=== PATIENT | female | born 1945 | race Caucasian/White ===

== ENCOUNTER 2020-03-19 07:54 | Outpatient (CLI) | payer MEDICARE, OTHER, SELFPAY ==
--- NOTE | 2020-03-19 09:08 | ECG_ITS ---
Measurements Intervals [place] Rate: 66 P: 54 VT: 182 QRS: -58 QRSD: 90 T: 70 QT: 403 QTc: 422 Interpretive Statements SINUS RHYTHM LEFT ATRIAL ENLARGEMENT LEFT ANTERIOR FASCICULAR BLOCK POSSIBLE LEFT VENTRICULAR HYPERTROPHY BASELINE ARTIFACT- I, II, AVR ABNORMAL ECG Electronically Signed On 03-19-2020 9:30:52 CDT by Agustin Delacruz D.O.
[2020-03-19 09:48] LABS: Basophils Percent Auto 0.6 % (0.2-1.2); Eosinophils Absolute Auto 0.2 K/mm3 (0-0.3); Eosinophils Percent Auto 3.7 % (0-4.4); Hematocrit 44.1 % (37.0-47.0); Hemoglobin 14.9 g/dL (12.0-15.0); Immature Granulocyte Absolute 0.01 K/mm3 (0.00-0.031); Immature Granulocyte Percent A 0.2 % (0-0.5); Lymphocytes Percent Auto 26.5 % (18.3-44.2); Mean Corpuscular HGB Conc 33.8 g/dl (32-36); Mean Corpuscular Hemoglobin 32.5 pg (26-34); Mean Corpuscular Volume 96.1 fl (80-100); Mean Platelet Volume 9.4 fl (7.4-10.4); Monocytes Absolute Auto 0.4 K/mm3 (0.1-0.6); Monocytes Percent Auto 7.6 % (2.6-8.5); Neutrophils Percent Auto 61.4 % (45.5-73.1); Platelet Count Result 285 k/mm3 (150-375); Red Blood Count 4.59 M/mm3 (4.2-5.4); Red Cell Distribution Width 12.8 % (11.5-14.5); White Blood Count 4.9 K/mm3 (4.5-10.0)
[2020-03-19 09:59] LABS: INR 0.9; Prothrombin Time 12.2 Seconds (11.1-14.7)
[2020-03-19 10:00] LABS: Alanine Aminotransferase 16 U/L (4-35); Albumin Level 4.6 g/dL (3.5-5.1); Alkaline Phosphatase 77 U/L (38-126); Anion Gap 7 mmol/L (8-16); Aspartate Amino Transferase 27 U/L (14-36); Bilirubin,Total 0.7 mg/dL (0.2-1.3); Blood Urea Nitrogen 13 mg/dL (7-17); Calcium 9.5 mg/dL (8.4-10.2); Carbon Dioxide 31 mmol/L (22-30); Chloride 96 mmol/L (98-107); Estimated Glomerular Filt Rate > 60; Glucose 95 mg/dL (65-105); Partial Thromboplastin Time 27.3 SECONDS (22.3-36.8); Potassium 4.2 mmol/L (3.4-5.0); Sodium 134 mmol/L (137-145)
== END 2020-03-19 07:55 | disposition home or self-care (01) ==
LOC: ANHSURGERY 08:00
PROVIDERS: PCP Internal Medicine; Visit Provider Urology
DX: Z01.818 Encounter for other preprocedural examination (principal); N81.4 Uterovaginal prolapse, unspecified; R94.31 Abnormal electrocardiogram [ECG] [EKG]
CPT/HCPCS: 36415; 80053; 85025; 85610; 85730; 86850; 86900; 86901; 87086; 87088; 93005

== ENCOUNTER 2020-03-23 00:30 | Outpatient (CLI) | payer MEDICARE, OTHER, SELFPAY ==
[2020-03-23 18:35] LABS: SARS-CoV-2 RNA PCR Negative
== END 2020-03-23 00:31 | disposition home or self-care (01) ==
LOC: ANHCOVIDDT 00:31
PROVIDERS: Visit Provider Urology
DX: Z01.812 Encounter for preprocedural laboratory examination (principal); Z20.828 Contact with and (suspected) exposure to other viral communicable diseases
CPT/HCPCS: 87635; C9803; U0003

== ENCOUNTER 2020-03-26 01:06 | Day surgery (SDC) | payer MEDICARE, OTHER, SELFPAY ==
[2020-03-19 08:11] VITALS: BP 171/89; PULSE 72; RESP 16; TEMP 36.6; O2SAT 98; BMI 22.3
--- NOTE | 2020-03-22 14:44 | P.HP_ITS ---
H&P: HPI History of Present Illness Date/Time: 03/22/20 14:44 Chief complaint: uterine prolapse, Narrative: Connie Rodriguez is a 74 year old female with pelvic organ prolapse and stress incontinence. She is no longer interested in pessary usage [facility] Social History Social History Smoking packs per day: 0.5 Smoking cigarettes per day: 10.0 Years smoked: 8 Smoking pack-years: 4.00 Smoking status: Former smoker Tobacco type: cigarettes Smoking end date: 08/10/89 Alcohol intake: current Substance use: never Last use: 1989 Spiritual care concerns: No Meds Home Medications and Allergies Home Medications Medication Instructions Recorded Confirmed Type [id number] fumarate-FA 1 tablet PO HS 03/19/20 03/19/20 History [] glucos sul [id number]-ptu-eflgp-C-Mn 2 cap PO HS 03/19/20 03/19/20 History [Glucosamine Chondroitin] magnesium oxide 1,200 mg PO HS 03/19/20 03/19/20 History Allergies Allergy/AdvReac Type Severity Reaction Status Date / Time Sulfa (Sulfonamide AdvReac Unknown n/v Verified 03/19/20 08:10 Antibiotics) fentanyl AdvReac Nausea and Verified 03/19/20 09:11 Vomiting Exam : Other: loss of apically support at -1 Assessment and Plan Assessment and plan (1) Uterine prolapse: Code(s): N81.4 - Uterovaginal prolapse, unspecified Status: Acute (2) AMADO (stress urinary incontinence, female): Code(s): N39.3 - Stress incontinence (female) (male) Status: Acute Additional Plan robotic sacral colpopexy with urethral sling
[2020-03-26] VITALS (13 sets, daily range): BP systolic 114–170; BP diastolic 56–78; PULSE 56–78; RESP 12–16; TEMP 36.4–36.8; O2SAT 90–100
--- NOTE | 2020-03-26 07:25 | PM.IMHP ---
H&P: HPI History of Present Illness Date/Time: 03/26/20 07:25 Chief complaint: uterine prolapse, Narrative: Connie Rodriguez is a 74 year old female With known history of uterine prolapse cystocele. For long period of time she has been using a pessary and doing well with this. Currently she desires definitive care and has seen Dr. lyon as well. Will be proceeding with supracervical hysterectomy and bilateral salpingo-oophorectomy to be followed by sacral colpopexy. Review of Systems Review of Systems: All systems reviewed & are unremarkable except as noted in HPI and below PMFSH Social History Social History Smoking packs per day: 0.5 Smoking cigarettes per day: 10.0 Years smoked: 8 Smoking pack-years: 4.00 Smoking status: Former smoker Tobacco type: cigarettes Smoking end date: 08/10/89 Alcohol intake: current Alcohol use details: 2 DRINKS/MONTH Substance use: never Last use: 1989 Living arrangements: with family Spiritual care concerns: No Meds Home Medications and Allergies Home Medications Medication Instructions Recorded Confirmed Type [id number] fumarate-FA 1 tablet PO HS 03/19/20 03/19/20 History [] glucos sul [id number]-[id number]-mzzbm-C-Mn 2 cap PO HS 03/19/20 03/19/20 History [Glucosamine Chondroitin] magnesium oxide 1,200 mg PO HS 03/19/20 03/19/20 History Allergies Allergy/AdvReac Type Severity Reaction Status Date / Time Sulfa (Sulfonamide AdvReac Unknown n/v Verified 03/19/20 08:10 Antibiotics) fentanyl AdvReac Nausea and Verified 03/19/20 09:11 Vomiting Exam Const: General: no acute distress Resp: Auscultation: clear to auscultation bilaterally Cardio: Rate: regular rate Rhythm: regular rhythm GI: GI Palp: Yes Soft to palpation : Other: Uterine prolapse to the introitus as well as cystocele Assessment and Plan Assessment and plan (1) Uterine prolapse: Code(s): N81.4 - Uterovaginal prolapse, unspecified Status: Acute (2) AMADO (stress urinary incontinence, female): Code(s): N39.3 - Stress incontinence (female) (male) Status: Acute Additional Plan proceed with robotic hysterectomy with bilateral salpingo oophorectomy (a hysterectomy will be supracervical)
--- NOTE | 2020-03-26 07:44 | WPDHPUPDATE1 ---
History and Physical Update Update Date/Time: 03/26/20 07:44 History and Physical has been reviewed, including an updated exam of the patient. There are NO changes in the patient's condition. Risks, benefits, and alternatives have been discussed and questions answered. Patient agrees to proceed with procedure.
[2020-03-26] MEDS: LACTATED RINGERS 1,000 ML 30 ML IV CONT ×2 (10:00→14:32)
[2020-03-26] MEDS: ACETAMINOPHEN 500 MG TABLET 1000 MG PO (10:08)
[2020-03-26] MEDS: KETOROLAC 15 MG/ML VIAL (*BKC) IV PUSH ×2 (10:11→19:58)
--- NOTE | 2020-03-26 10:26 | P.PNAN_ITS ---
Anes - Initial Pre Proc Eval Procedure: Operation Date: 03/26/20 11:30 Proposed Procedures p Robotic Sacrocolpopexy, Possible Urethral Sling - Dwayne Woodward MD s Robotic Assisted Laparoscopic Supracervical Hysterectomy, Bilateral Salpingo- Oophorectomy - Yariel Alfred MD Date/Time: 03/26/20 10:26 Surgeon: Dwayne Woodward MD Pre Op Diagnosis: uterine prolapse, Patient Data Age: 74 Gender: F Height: 5 ft 4.5 in Weight: 59.2 kg Last Vital Signs Temp 36.5 C 03/26/20 10:17 Pulse 75 03/26/20 10:17 Resp 16 03/19/20 08:11 BP 170/78 H 03/26/20 10:17 Pulse Ox 100 03/26/20 10:17 Allergies Allergy/AdvReac Type Severity Reaction Status Date / Time Sulfa (Sulfonamide AdvReac Unknown n/v Verified 03/19/20 08:10 Antibiotics) fentanyl AdvReac Nausea and Verified 03/19/20 09:11 Vomiting Home Medications Medication Instructions Recorded Confirmed Type [id number] fumarate-FA 1 tablet PO HS 03/19/20 03/26/20 History [] glucos sul [id number]-njhtd-C-Mn 2 cap PO HS 03/19/20 03/26/20 History [Glucosamine Chondroitin] magnesium oxide 1,200 mg PO HS 03/19/20 03/26/20 History Patient hx anesthesia problems: post op nausea/vomiting Family hx anesthesia problems: none PMFSH Past Medical History Medical History GERD (gastroesophageal reflux disease) Pulmonary arteriovenous malformation Social History Social History Smoking packs per day: 0.5 Smoking cigarettes per day: 10.0 Years smoked: 8 Smoking pack-years: 4.00 Smoking status: Former smoker Tobacco type: cigarettes Smoking end date: 08/10/89 Alcohol intake: current Alcohol use details: 2 DRINKS/MONTH Substance use: never Last use: 1989 Living arrangements: with family Spiritual care concerns: No Anes - Eval Final PreProcedure Day of Procedure 03/26/20 10:26 Patient weight: normal Heart: regular rate and rhythm Lungs: clear to auscultation Airway: Mallampati scale class II Neurological: alert and oriented Last oral intake: >/= 8 hours ASA classification: II Emergent: no Anesthetic plan: proceed Anesthesia type and monitoring: general ETT and standard monitoring Informed Consent: The patient's anesthetic plan and its attendant risks and benefits were discussed with the patient/family/POA. Questions were solicited and answers provided to the satisfaction of the patient/family/POA.
[2020-03-26] MEDS: ceFAZolin 2 GM/D5W 50 ML 2 GM/50 ML BAG IVPB (11:47)
[2020-03-26] MEDS: metroNIDAZOLE 500 MG/ISO 100ML 500 MG/100 ML BAG 100 MG IVPB ×2 (11:47→20:52)
[2020-03-26] MEDS: BUPIVACAINE/EPINEPHRINE 0.25% 50 ML VIAL INFILTRATE (12:27)
--- NOTE | 2020-03-26 12:39 | P.OPB_ITS ---
Procedure Note - Brief Procedure Note - Brief Date of procedure: 03/26/20 Pre-op diagnosis: uterine prolapse, Post-op diagnosis: same Procedure performed: Robotic assisted supracervical hysterectomy with bilateral salpingo-oophorectomy Description of procedure: patient was prepped and draped in the usual manner for this procedure. Dr. Woodward placed all the trocars under direct visualization once the entrance replaced surgeon moved to the console and the infundibulopelvic ligaments were cauterized and cut bilaterally as well as the round ligaments which were cut and cauterized bilaterally the anterior and pos terior leaf of the broad ligament was incised with formation of the bladder flap. The uterine vessels were skeletonized cauterized and cut. The uterus tubes and ovaries were then amputated at the cervix. An placed in an Endo-Catch bag for removal later in the case. There was no bleeding no other abnormalities noted. At this point Dr. Woodward into the room to proceed with his portion of the procedure. Anesthesia: GLMA Surgeon: Yariel Alfred MD Estimated blood loss (mL): 10 Drains: No Packing: No Pathology: yes Complications: No immediate complications Condition: stable Disposition: PACU Findings: Uterus prolapsed to the introitus. Also the uterus tubes and ovaries in the abdominal cavity were without abnormality.
--- NOTE | 2020-03-26 14:18 | PM.PROC ---
Procedure Note - Detailed Date of procedure: 03/26/20 Pre-op diagnosis: uterine prolapse, Uterine prolapse Stress urinary incontinence Post-op diagnosis: same Procedure performed: Robotic assisted laparoscopic sacral colpopexy Mid urethral sling (transobturator sling) Cystoscopy Description of procedure: She understood the risks of bleeding, infection, damage to surrounding organs, bowel injury, bowel obstruction, recurrence of prolapse, persistent or recurrent stress incontinence, mesh related complications including exposure and extrusion, diskitis, postoperative voiding dysfunction including incontinence and retention, hip and leg pain, dyspareunia, and she agrees to proceed. She was correctly identified and informed consent was obtained. She was brought to the operating room. She was given general anesthesia. She was placed in the dorsal lithotomy position. All pressure points were padded. She was given appropriate perioperative antibiotics. Time-out performed. I anesthetized the skin 3 fingerbreadths cephalad to the umbilicus. I incised the skin. I dissected down to locate the fascia. I grasped the fascia with Anna clamps. I entered the fascia sharply. I placed Vicryl sutures for later fascial closure. I placed a midline trocar. Under direct vision 2 additional trocars were placed on the right and left upper quadrant. She was placed in steep Trendelenburg and the robot was docked. Her reed press feeder performed the portion of the procedure and left the specimen and a sac which was extracted. I then sat at the console. With the Sizer in the vagina I created a plane on the anterior and posterior vaginal wall. This was done for several cm taking great care not to injure the vagina, bladder, or rectum. I introduced the mesh into the abdomen. I sewed the anterior leaflet of mesh on the anterior vaginal wall and posterior leaf of the mesh on the posterior vaginal wall with several [place] sutures taking great care not to go through and through. I then reflected the colon laterally. I opened up the posterior peritoneum over the sacral promontory. I carried this into the cul-de-sac. I kept the ureters lateral. I freed up the edges. I located the anterior longitudinal ligament of the sacrum. I tensioned the mesh appropriately. I did a vaginal exam to ensure prolapse reduction without undue tension. I then sewed the proximal leaflet of mesh onto the ligament with 3 sutures of 2 0 [place]. Next the mass was meticulously retroperitonealized with a running 2 0 Monocryl suture. I allowed the colon to go back into its normal anatomic location. There is no signs of any impingement or stricturing. The abdomen was exited. Fascia was closed. Skin was closed with Monocryl and glue. She was repositioned and prepped for urethral sling. I marked out the thigh incisions. I anesthetize the skin and made those incisions. I anesthetized the anterior vaginal wall over the mid urethra. I made a 1 cm incision. I dissected out laterally taking great care not to injure the urethra or the vaginal wall. I next passed the helical trocars to 1st on the left and then on the right. This was done from the thigh incision towards the vaginal incision. The sling was connected to the trocars and brought out through the thigh incision. I tensioned the sling appropriately. I cut and removed the plastic sheaths. I then closed the incision with 2 0 Vicryl. I then performed cystoscopy. The bladder is examined. There was no tumors, stones, foreign bodies, surgical artifact. Both ureters were seen to excrete clear yellow urine. There is no surgical artifact in the urethra. Catheter was then replaced. She was awakened and transferred to the PACU in stable condition. Anesthesia: GLMA Surgeon: Dwayne Woodward MD Drains: Yes (Duque catheter) Packing: Yes Complications: No immediate complications Condition: stable Disposition: PACU
[2020-03-26] MEDS: KCL 20 MEQ/D5/0.45% SOD CHL 1,000 ML 100 ML IV CONT (16:36)
[2020-03-26] MEDS: ONDANSETRON INJ 4 MG/2 ML VIAL IV PUSH (16:36)
--- NOTE | 2020-03-26 17:25 | PC.NURSE ---
This patient, Connie Rodriguez, was admitted to OB 2nd Floor Room 287-00. Patient/family oriented to hospital policies and general routines including ID bracelet, bed and alarms, visiting hours, pain management, procedures, bathroom and other care routines, personal items, smoking policy, room service/diet, and visiting hours. Valuables list has been completed. Information on how to activate the Rapid Response Team has been discussed. Patient/Family are encouraged to report perceived risks to care and to ask questions if they do not understand what they are told or what they should do.
[2020-03-27 00:15] VITALS: BP 121/66; PULSE 80; RESP 14; TEMP 36.9; O2SAT 97
[2020-03-27 04:30] VITALS: BP 126/72; PULSE 72; RESP 13; TEMP 36.8; O2SAT 98
[2020-03-27] MEDS: metroNIDAZOLE 500 MG/ISO 100ML 500 MG/100 ML BAG 100 MG IVPB ×2 (04:31→12:48)
[2020-03-27] MEDS: KETOROLAC 15 MG/ML VIAL (*BKC) IV PUSH (04:33)
--- NOTE | 2020-03-27 07:52 | WPDANESPN ---
Anes - Prog Note Post-Op Date/Time: 03/27/20 07:52 Cardiovascular status: normal Respiratory status: normal Airway patency: baseline Mental status: baseline Post-Op hydration status: normal Vital Signs: Last Vital Signs Temp 36.8 C 03/27/20 04:30 Pulse 72 03/27/20 04:30 Resp 13 03/27/20 04:30 BP 126/72 03/27/20 04:30 Pulse Ox 98 03/27/20 04:30 I/O: Intake & Output 03/26/20 03/26/20 03/27/20 15:59 23:59 07:59 Intake Total 500 242 200 Output Total 50 200 550 Balance 450 42 -350 Post-procedural complaints: none Patient Feedback: Patient satisfied with anesthetic care.
[2020-03-27] MEDS: DOCUSATE SODIUM 100 MG CAPSULE PO (08:05)
[2020-03-27 08:35] VITALS: BP 149/75; PULSE 63; RESP 18; TEMP 37.5; O2SAT 98
== END 2020-03-27 14:07 | disposition home or self-care (01) ==
LOC: ANHSURGERY 11:25 → ANHOB2 16:01
PROVIDERS: Obstetrics & Gynecology; PCP Internal Medicine; Visit Provider Urology
PROC: (CPT 57425; principal; 2020-03-26 11:30)
PROC: 0UT94ZZ Resection of Uterus, Percutaneous Endoscopic Approach (ICD-10-PCS; CPT 57425; 2020-03-26 11:30)
DX: N81.4 Uterovaginal prolapse, unspecified (principal); N39.3 Stress incontinence (female) (male); Z87.891 Personal history of nicotine dependence
CPT/HCPCS: 57288; 57425; 58542; S2900 ×2; 88305; 88307; 99199; A9270; C1771; C1781; J0360; J0690; J1100; J1170; J1885; J2370; J2405; J2704; J2710; J3010; J3480; J7030; J7120

== ENCOUNTER 2020-03-31 19:09 | Emergency (ER) | payer MEDICARE, OTHER, SELFPAY ==
--- NOTE | ~2020-03-31 | CT_ITS ---
EXAMINATION: CT abdomen pelvis w con DATE: 03/31/2020 20:42 INDICATION: Abdominal pain TECHNIQUE: Computed tomography (CT) of the abdomen and pelvis was performed with 100 mL Omnipaque-350 intravenous contrast. Automated exposure control and iterative reconstruction technique were employe d. The dose-length product was 324.97 mGy-cm. COMPARISON: None FINDINGS: Metallic embolization coils with surrounding streak artifact at the lingula. Heart size is normal. No pericardial or pleural effusion. There is small amount of free intraperitoneal gas predominant under lying the right hemidiaphragm is also additional soft tissue gas in the right abdominal wall likely r elated to reported recent hysterectomy. Laparoscopy tracks are seen at the left, right and central ab domen. Liver, decompressed gallbladder, spleen, pancreas, bilateral adrenal glands and kidneys are no rmal. Moderate amount of stool scattered throughout the colon with a 6.1 x 5.6 cm ball of stool at th e rectum consistent with given history of constipation. There is mild wall thickening at the rectum w ith edema in the perirectal fat consistent with stercoral colitis. There are few scattered colonic di verticula without adjacent inflammatory change to suggest diverticulitis. Small bowel is normal in ca liber with no obstruction. Bladder is normal. The uterus is not identified consistent with given hist ory of recent hysterectomy. No abscess or significant free intraperitoneal fluid. No pathologically e nlarged abdominal or pelvic lymphadenopathy. There is calcified atherosclerosis of the aorta and bila teral iliac arteries. Mild lumbar dextrocurvature with severe spondylosis. IMPRESSION: 1. Mild rectal wall thickening and surrounding perirectal edema likely related to constipation and st ercoral colitis with a 6.1 x 5.6 cm ball of stool at rectum. 2. Postoperative changes of recent laparoscopic hysterectomy with expected residual free intraperiton eal gas. Reviewed, dictated and finalized at location A. IMPRESSION: 1. Mild rectal wall thickening and surrounding perirectal edema likely related to constipation and stercoral colitis with a 6.1 x 5.6 cm ball of stool at rect um. 2. Postoperative changes of recent laparoscopic hysterectomy with expected resi dual free intraperitoneal gas.
[2020-03-31 19:23] VITALS: BP 183/70; PULSE 91; RESP 17; TEMP 36.9; O2SAT 99
[2020-03-31] MEDS: SODIUM CHLORIDE 0.9% IV 1,000 ML 999 ML IV CONT (19:55)
[2020-03-31 19:58] LABS: Basophils Percent Auto 0.3 % (0.2-1.2); Eosinophils Absolute Auto 0.1 K/mm3 (0-0.3); Eosinophils Percent Auto 1.3 % (0-4.4); Hematocrit 38.5 % (37.0-47.0); Hemoglobin 13.6 g/dL (12.0-15.0); Immature Granulocyte Absolute 0.05 K/mm3 (0.00-0.031); Immature Granulocyte Percent A 0.5 % (0-0.5); Lymphocytes Absolute Auto 0.77 K/mm3 (0.9-3.2); Lymphocytes Percent Auto 8.1 % (18.3-44.2); Mean Corpuscular HGB Conc 35.3 g/dl (32-36); Mean Corpuscular Hemoglobin 32.2 pg (26-34); Mean Platelet Volume 9.1 fl (7.4-10.4); Monocytes Absolute Auto 0.5 K/mm3 (0.1-0.6); Monocytes Percent Auto 4.8 % (2.6-8.5); Neutrophils Absolute Auto 8.1 K/mm3 (1.3-6.7); Platelet Count Result 324 k/mm3 (150-375); Red Blood Count 4.23 M/mm3 (4.2-5.4); Red Cell Distribution Width 12.2 % (11.5-14.5); White Blood Count 9.5 K/mm3 (4.5-10.0)
--- NOTE | 2020-03-31 20:00 | ED.ABDPAIN ---
HPI - Abdominal Pain General Chief Complaint: Abdominal Pain Stated Complaint: constipation s/p hysterectomy Time Seen by Provider: 03/31/20 19:24 Source: patient Mode of arrival: ambulatory Limitations: no limitations History of Present Illness HPI narrative: Patient is a 74-year-old female who presents to emergency department for evaluation of constipation for the last week patient had hysterectomy and bladder sling a week ago and had been taking tramadol and is now been unable to have a bowel movement patient notes pressure in the rectum with mild abdominal discomfort which has been persistent since the surgery patient denies any vomiting rectal bleeding melena urinary symptoms and is otherwise resting comfortably in the room upon arrival in no distress Related Data Home Medications Medication Instructions Recorded Confirmed Glucosamine Chondroitin 2 cap PO HS 03/19/20 03/26/20 [id number] fumarate-FA 1 tablet PO HS 03/19/20 03/26/20 [] magnesium oxide 1,200 mg PO HS 03/19/20 03/26/20 Allergies Allergy/AdvReac Type Severity Reaction Status Date / Time Sulfa (Sulfonamide AdvReac Unknown n/v Verified 03/19/20 08:10 Antibiotics) fentanyl AdvReac Nausea and Verified 03/19/20 09:11 Vomiting Review of Systems Review of Systems: All systems reviewed & are unremarkable except as noted in HPI and below PMFSH Past Medical History Medical History (Updated 03/31/20 @ 21:16 by Dae Krishna PA-C) GERD (gastroesophageal reflux disease) Pulmonary arteriovenous malformation Surgical History Surgical History (Updated 03/31/20 @ 20:01 by Dae Krishna PA-C) H/O: hysterectomy Social History Social History Smoking packs per day: 0.5 Smoking cigarettes per day: 10.0 Years smoked: 8 Smoking pack-years: 4.00 Smoking status: Former smoker Tobacco type: cigarettes Smoking end date: 08/10/89 Alcohol intake: current Substance use: never Last use: 1989 Gender identity (if verbalized by the patient): Female Spiritual care concerns: No Exam Narrative: Exam Narrative: GENERAL: Well-appearing, well-nourished, and in no acute distress. HEAD: Normocephalic, atraumatic. EYES: PERRLA and EOMI. ENT: Nares clear, no rhinorrhea or epistaxis. Mucous membranes moist. CHEST: Clear to auscultation. No respiratory distress. No wheezes rales or rhonchi HEART: Regular rate and rhythm. No murmur heard. Normal peripheral pulses. ABDOMEN: Soft, nontender, nondistended, normal active bowel sounds. EXTREMITIES: Normal range of motion. No edema. SKIN: Warm, dry, no rash. NEURO: No focal deficits. Alert and oriented x3. PSYCH: Normal mood and affect. Course Course Emergency Course: Patient in the room at this time with constipation as the etiology was hydrated given an enema patient was able to have some relief with interventions patient will follow with primary care and surgery for follow-up no high risk changes in the blood work or imaging Vital Signs Vital signs: Vital Signs Temperature 98.4 F 03/31/20 19:23 Pulse Rate 91 03/31/20 19:23 Respiratory Rate 17 03/31/20 19:23 Blood Pressure 183/70 H 03/31/20 19:23 Pulse Oximetry 99 03/31/20 19:23 Temperature 98.4 F 03/31/20 19:23 Pulse Rate 91 03/31/20 19:23 Respiratory Rate 17 03/31/20 19:23 Blood Pressure 183/70 H 03/31/20 19:23 Pulse Oximetry 99 03/31/20 19:23 MDM - Abdominal Pain MDM Narrative Medical decision making narrative: Patient in the room at this time resting comfortably with constipation as the etiology of her symptoms in no distress nontender abdominal exam no high risk cyst in the blood work or imaging will be sent home with medications for constipation and follow-up with her surgeon and primary care given reasons to return Lab Data Result diagrams: 03/31/20 19:53 03/31/20 19:53 Labs: Lab Resu
[2020-03-31 20:10] LABS: Alanine Aminotransferase 16 U/L (4-35); Albumin Level 4.6 g/dL (3.5-5.1); Alkaline Phosphatase 92 U/L (38-126); Anion Gap 11 mmol/L (8-16); Aspartate Amino Transferase 25 U/L (14-36); Bilirubin,Total 0.5 mg/dL (0.2-1.3); Blood Urea Nitrogen 10 mg/dL (7-17); Calcium 8.8 mg/dL (8.4-10.2); Carbon Dioxide 29 mmol/L (22-30); Chloride 91 mmol/L (98-107); Estimated CRCL calculation 75 ml/min; Estimated Glomerular Filt Rate > 60; Glucose 175 mg/dL (65-105); Lipase 125 U/L (23-300); Potassium 3.9 mmol/L (3.4-5.0); Sodium 131 mmol/L (137-145)
[2020-03-31] MEDS: METHYLNALTREXONE 12 MG/0.6 ML VIAL SUB-Q (20:34)
[2020-03-31] MEDS: LIDOCAINE HCL 2% GEL UROJET 10 ML PKG (21:02)
[2020-03-31] MEDS: polyethylene glycoL 3350 17 GM POWD.PACK PO (21:22)
[2020-03-31 21:31] VITALS: BP 158/62; PULSE 76; RESP 19; TEMP 36.2; O2SAT 100
[2020-03-31 22:24] VITALS: BP 147/64; PULSE 70; RESP 19; TEMP 36.7; O2SAT 100
== END 2020-03-31 22:25 | disposition home or self-care (01) ==
PROVIDERS: Emergency Medicine Emergency Medical Services; Emergency Provider Emergency Medicine
DX: K21.9 Gastro-esophageal reflux disease without esophagitis (principal); Z87.891 Personal history of nicotine dependence
CPT/HCPCS: 36415; 74177; 80053; 83690; 85025; 96360; 96372; 99284; J2212; J7030; Q9967

== ENCOUNTER → 2021-07-11 11:49 | Outpatient (CLI) | payer OTHER, SELFPAY ==
--- NOTE | ~2021-07-11 | MM_ITS ---
EXAMINATION: MM screening cristhian BI w lata HISTORY: Screening mammogram TECHNIQUE: Craniocaudal and mediolateral oblique 3-D tomosynthesis images were obtained and synthetic 2-D images were generated. CAD analysis was submitted and interpreted. COMPARISON: 01/15/2017 bilateral screening mammogram BREAST PARENCHYMAL COMPOSITION: There are scattered areas of fibroglandular density. FINDINGS: There is no evidence of suspicious mass, calcification, or architectural distortion to sugg est malignancy in either breast. There has been no suspicious interval change. IMPRESSION: 1. No mammographic evidence of malignancy. 2. Recommend routine screening mammography in one year. BI-RADS Category 1: Negative Reviewed, dictated and finalized at location A. 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
--- NOTE | ~2021-07-11 | XR_ITS ---
EXAMINATION: XR knee LT 3V DATE: 07/11/2021 12:20 INDICATION: Primary osteoarthritis. Left knee pain. TECHNIQUE: 3 views of left knee including standing views were obtained. COMPARISON: None. FINDINGS: There is varus angulation at the knee. There is lateral subluxation of tibia with respect t o distal femur. No fracture. There is severe osteoarthritis of medial compartment, mild osteoarthriti s of lateral compartment, and moderate osteoarthritis of patellofemoral compartment. There is a large knee joint effusion. IMPRESSION: 1. Severe left knee osteoarthritis. 2. Large left knee joint effusion. Reviewed, dictated and finalized at location A. ERVATION OR HERITAGE ARCHITECT
== END ==
PROVIDERS: PCP Internal Medicine; Visit Provider Internal Medicine
DX: Z12.31 Encounter for screening mammogram for malignant neoplasm of breast (principal); M19.072 Primary osteoarthritis, left ankle and foot; M17.12 Unilateral primary osteoarthritis, left knee; M25.462 Effusion, left knee
CPT/HCPCS: 73562; 77063; 77067

== ENCOUNTER 2021-07-31 07:54 | Outpatient (RCR) | payer OTHER, SELFPAY ==
--- NOTE | 2021-07-31 08:57 | PTOPEVAL ---
PHYSICAL THERAPY EVALUATION/ DISCHARGE 07-31-21 Thank you for referring Connie Jose to [facility] [place] for the diagnosis of L knee OA. ?The evaluation was completed and she was educated and indep on a home exercise program, pain management techniques and general information about TKR. She is motivated and is to continue with her home exercise program. And agreed to be discharged from PT services. Please review, sign, date and return this evaluation/discharge report CELINA. I agree with and certify that the following plan of care is medically necessary. 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 Gastrointestinal History Hx Gastroesophageal Reflux Disease Yes: REFLUX AT INTERVALS Hx Ulcer Yes: HX- ~1999 Genitourinary History Hx Other Genitourinary Disorders Yes: OCCAS INCONTINENT, UTERINE PROLAPSE Musculoskeletal History Hx Arthritis Yes: KNEES Hematological History Hx Blood Transfusions Yes: WITH GI BLEED 20 YEARS AGO Endocrine History Hx Endocrine Disorders No Significant History HEENT History Hx Cataracts Yes: BILAT IMPLANTS Integumentary History Hx Shingles Yes: LEFT ABD ~2005 Reproductive History Hx Other Reproductive Disorders Yes: UTERINE PROLAPSE, HX D & C YEARS AGO Psychosocial History Hx Psychiatric Disorders No Significant History Pain History History of Any Previous or Ongoing No Significant History Instance of Pain Anesthesia History Hx Anesthesia Reactions No Significant History Evaluation Information Problem Diagnosis L knee OA Onset January 2021 Subjective Information gradual increase in pain due Query Text:As Reported By Patient/ to arthritis, no injury or Family trauma to knee; saw ortho few weeks ago, umang off fluid and gave cortisone shot-- helped pain; told her she would eventually have to get a knee replacement; Diagnostic Tests X-Rays For This Problem Yes: OA knee Previous Treatments Previous Treatments For This Problem no PT in past Prior Level of Function Activity Level (Last 3 Months) Occupation retired Activity o
== END 2021-07-31 14:34 | disposition home or self-care (01) ==
LOC: ANHPT 07:54
PROVIDERS: PCP Internal Medicine
DX: M17.12 Unilateral primary osteoarthritis, left knee (principal)
CPT/HCPCS: 97161

== ENCOUNTER → 2021-10-22 10:00 | Outpatient (CLI) | payer OTHER, SELFPAY ==
--- NOTE | ~2021-10-22 | DEXA_ITS ---
Bone Density Report Name: LINDSEY CHEEK Age: 76 Sex: Female Ethnicity: White Date of : 1945 Indication: postmenopausal; screening for osteoporosis; parental hip fracture; height loss; hysterectomy; Referring Provider: Reema, Preston Study: Bone densitometry was performed. Exam Date: October 22, 2021 Accession number: [id number] Bone Density: Region BMD T-score Z-score Classification AP Spine (L1-L4) 0.919 -1.2 1.2 Osteopenia Femoral Neck (Left) 0.620 -2.1 0.0 Osteopenia Total Hip (Left) 0.747 -1.6 0.2 Osteopenia Femoral Neck (Right) 0.667 -1.6 0.5 Osteopenia Total Hip (Right) 0.781 -1.3 0.5 Osteopenia Total Hip Mean 0.764 -1.5 0.4 Osteopenia World Health Organization criteria for BMD impression classify patients as: Normal (T-score at or above -1.0), Osteopenia (T-score between -1.0 and -2.5), or Osteoporosis (T-score at or below -2.5). 10-year Fracture Risk(1): Major Osteoporotic Fracture 25% Hip Fracture 15% Reported Risk Factors: [place] (), Neck BMD=0.620, BMI=25.3, parental fracture (1) FRAX(R) Version 3.08. Fracture probability calculated for an untreated patient. Fracture probability may be lower if the patient has received treatment. Clinical Information Provided by Patient: Parent has had a hip fracture Has the following medical conditions: Hysterectomy Patient maximum height was 66 Menopause Age: 49 Does not regularly consume dairy products Drinks caffeinated beverages Onset of menses at age 14 Number of children 2 Impression: The patient has low bone mass, based on the Left Femoral Neck T-score. The patient has an estimated ten-year risk of hip fracture of 15% and an estimated ten-year risk of major fracture of 25%, based on the WHO FRAX algorithm. The patient has risk factors, including: parental hip fracture. Discussion: BONE DENSITY IS LOW AT ONE OR MORE SKELETAL SITES. THE PATIENT'S BMD AND CLINICAL RISK FACTORS CONTRIBUTE TO THIS PATIENT'S HIGH RISK OF FRACTURE. This patient's lowest T-score is low at one or more skeletal sites. It meets the World Health Organization's (WHO) criteria for ?low bone mass? (T-score between -1.0 and -2.5). The patient's 10-year risk of hip fracture and 10 year risk of a major osteoporotic fracture as calculated by FRAX exceeds the threshold where pharmacological therapy is recommended by the National Osteoporosis Foundation (NOF). However, all treatment decisions require clinical judgment and consideration of individual patient factors, including patient preferences, comorbidities, previous drug use, risk factors not captured in the FRAX model (e.g., frailty, falls, vitamin D deficiency, increased bone turnover, interval significant decline in bone density) and possible under or overestimation of fracture risk by FRAX. The patient s
== END ==
PROVIDERS: PCP Internal Medicine; Visit Provider Internal Medicine
DX: Z78.0 Asymptomatic menopausal state (principal); M85.88 Other specified disorders of bone density and structure, other site; M85.851 Other specified disorders of bone density and structure, right thigh; M85.852 Other specified disorders of bone density and structure, left thigh
CPT/HCPCS: 77080

== ENCOUNTER 2022-11-18 10:00 | Outpatient (RCR) | payer OTHER, SELFPAY ==
--- NOTE | 2022-10-29 11:57 | PTOPEVAL1 ---
Assessment and note entered by Hieu Saunders, PT Evaluation Information Assessment Status Evaluation Diagnosis L TKA Onset 10/08/22 Subjective Information Connie reports she is 3 weeks post a L TKA. She did home health for the first two weeks and that at her followup with the doctor to remove the stitches they were happy with her results. She is currently using a cane. She has been faithful with her exercises, but not always icing her knee. She has not been using her basement steps since the surgery. Reported Pain Level Pain Score 0: Self Report Assessment PT Clinical Summary Connie is a 77 year old female coming into the clinic for aftercare following a L knee replacement. She needs to progress away from using an assistive device and able to use her stairs at home. Also needs to work on L knee active range of motion and reduce edema. Physical therapy will work on improving functional mobility , range of motion, along with strengthening of the L knee and RITA hips. Plan of Care Interventions Electrical Stimulation,Gait Training,Hot Pack/Cold Pack,Manual Therapy,Neuro Re-education,Patient/ Caregiver Education,Therapeutic Activities, Therapeutic Exercise,Ultrasound Other Interventions taping PT Services Indicated Yes Treatment Frequency and 2x/wk fir 4 weeks Duration These treatments will address the objective and functional deficits as defined above. The patient will be advanced safely and appropriately in order for the patient to progress towards his/her prior level of function. Additional exercises will be introduced and as well as a comprehensive home exercise program upon discharge, if needed, ?to ensure carryover of functional gains achieved in the clinic. This treatment plan has been reviewed and agreement upon by the patient.
--- NOTE | 2022-11-14 10:54 | PCPTNOTE ---
Patient called & cancelled scheduled appointment this date due to not feeling well.
--- NOTE | 2022-11-18 11:47 | PTOPDC ---
Assessment and note entered by Hieu Saunders, PT Evaluation Information Assessment Status Re-evaluation Diagnosis L TKA Onset 10-08-22 Subjective Information Patient reports she is back to doing a lot of her prior activities, like cutting grass. She will still use the cane on uneven surfaces, but does not use anything around the house and when walking on firm surfaces. Only real complaints are stiffness and swelling. Reported Pain Level Pain Score 0: Self Report Assessment PT Clinical Summary Connie is a 77 year old female coming into the clinic after a L TKA on 10/08/22. She did home health prior to outpatient PT. She was evaluated on 10/29/22 and attended 5 session with 1 visit cancelled. Patient has met all goals except for edema, which has not changed since initial evaluation. Physical therapy feels patient is good to continue with HEP, but if surgeon sees anything they want us to work on we can continue to see the patient. Plan of Care PT Services Indicated No
== END 2022-11-18 15:20 | disposition home or self-care (01) ==
LOC: ANHPT 10:00
PROVIDERS: PCP Internal Medicine
DX: Z47.1 Aftercare following joint replacement surgery (principal); Z96.652 Presence of left artificial knee joint
CPT/HCPCS: 97110; 97112; 97161; 97530